=== PATIENT | female | born 1965 | race Caucasian/White ===

== ENCOUNTER → 2023-04-17 09:24 | Outpatient (REF) | payer BC, SELFPAY | LOC: WDC 09:24 | PROVIDERS: ATTENDING PHYSICIAN Obstetrics & Gynecology Gynecology; FAMILY PHYSICIAN Family Medicine | DX: R92.8 Other abnormal and inconclusive findings on diagnostic imaging of breast (principal) | CPT/HCPCS: 76642 ==